=== PATIENT | male | born 1985 | race Caucasian/White ===

== ENCOUNTER 2016-07-31 18:29 | Emergency (ER) | payer MEDICAID, OTHER ==
[2016-07-31 18:43] VITALS: BP 147/80
[2016-07-31] MEDS ORDERED: ORPHENADRINE CITRATE 30 MG/ML VIAL IM ONE (18:53)
[2016-07-31] MEDS ORDERED: KETOROLAC TROMETHAMINE 30 MG/ML VIAL IM ONE (18:53)
[2016-07-31] MEDS ORDERED: oxyCODONE HCL/ACETAMINOPHEN 1 TAB TABLET PO ONE (18:53)
[2016-07-31] MEDS ORDERED: KETOROLAC TROMETHAMINE 30 MG/ML VIAL ONE (19:01)
[2016-07-31] MEDS ORDERED: ORPHENADRINE CITRATE 30 MG/ML VIAL ONE (19:01)
[2016-07-31] MEDS ORDERED: oxyCODONE HCL/ACETAMINOPHEN 1 TAB TABLET ONE (19:01)
--- NOTE | 2016-07-31 19:05 | ERNOTE ---
Upper Extremity HPI - Narrative Date of Service: 07/31/16 - General Extremities Pain Location: shoulder: left - Pain Time Seen by Provider: 07/31/16 18:50 Source: patient Exam Limitations: no limitations - Immun/Allergies/Home Medications Immunizations: IMMUNIZATION HX Immunizations Up to Date Yes History of Influenza Vaccine No Home Medications: HOME MEDICATIONS Naproxen [Naprosyn] 500 mg PO BID PRN #20 tab 07/31/16 [Last Taken Unknown] Orphenadrine Citrate [Norflex] 100 mg PO Q12H #14 tablet.sa 07/31/16 [Last Taken Unknown] traMADol HCL [Ultram] 50 mg PO QID PRN #21 tab 07/31/16 [Last Taken Unknown] - History of Present Illness Narrative: Patient comes due to L shoulder pain. Patient stated that he move yesterday, but had no direct trauma to the shoulder. Patient with no fever. The pain reproduced with any movement including breathing. Occurred: yesterday Location of Incident: home Severity: moderate Method of Injury: Reports: other - recent over use. Denies: fell, twisted, direct blow, fainted, motor vehicle accident, assault, burn, incised, sports injury, no apparent injury Reason for Fall: Reports: other - none Loss of Consciousness: Reports: no loss of consciousness Modifying Factors - (Improves): Reports: other - nothing Modifying Factors - (Worsens): Reports: movement Associated Symptoms: Reports: weakness, other - pain on ROM Other Injuries: Reports: none Prior Treament: Denies: recently seen Additional Comments: Patient just move into the area. Review of Systems - Review of Systems Constitutional: Present: no symptoms reported EYE: Present: no symptoms reported ENT: Present: no symptoms reported Respiratory: Present: no symptoms reported Cardiology: Present: no symptoms reported Gastrointestinal/Abdominal: Present: no symptoms reported Genitourinary: Present: no symptoms reported Musculoskeletal: Present: muscle pain - L shoulder area at the Bicep Tendo region. Absent: joint pain, joint swelling Skin: Present: no symptoms reported Neurological: Present: no symptoms reported Endocrine: Present: no symptoms reported Hematologic/Lymphatic: Present: no symptoms reported Psych: Present: no symptoms reported All Other Systems: All systems neg except as marked - Patient's Past Medical History Patient History - Medical: No pertinent hx Patient History - Cardiac/Respiratory: No pertinent hx Patient History - Cancer: No Hx of Cancer Patient History - Surgical Procedures: No surgical history Patient History - Other: None - Social History Living Situations: spouse Abuse History: No History of abuse Psych History: Hx of Depression Smoking Status: Current every day smoker Have you smoked in the past 12 months: Yes Do you dip or chew tobacco: No Alcohol Use: none Drug Use: none - Immunizations Immunizations Up to Date: Yes History of Influenza Vaccine: No Physical Exam - Physical Exam General Appearance: Present: wd/wn, alert, no apparent distress Eye Exam: Normal inspection: bilateral Ears, Nose, Throat: Present: normal ENT inspection Neck: Present: normal inspection, nontender Respiratory: Present: no respiratory distress, normal breath sounds, no accessory muscle use, chest nontender, lungs clear Cardiovascular/Chest: Present: regular rate, rhythm, no murmur, normal peripheral pulses Gastrointestinal/Abdominal: Present: normal bowel sounds. Absent: distended, guarding, rebound, mass Back Exam: Present: normal inspection, normal range of motion, no CVA tenderness , no vertebral tenderness Extremity Exam: Present: decreased range of motion - due to pain, other - Good Pulse, There is pain on the Bicep Tendon area. ROM is preserved but limited due to pain. Patient has good sensation Neurological Exam: Present: alert, oriented, normal mood/affect, no motor/ sensory deficits Skin Exam: Present: normal color, warm/dry Lymphatic Exam: Present: no adenopathy ED Progress - Vital Signs Patient's Vital Signs:: I have reviewed the patient's vital signs. Vital Signs: Vital Signs 07/31/16 18:30 Temperature 37.1 C Pulse Rate 105 H Respiratory 18 Rate Blood Pressure 147/80 O2 Sat by Pulse 99 Oximetry - Progress/Reassessment Chief Complaint: Shoulder Injury/Pain Progress:: Improved - Transfer of Care Expected Disposition: Discharge Departure Clinical Impression: Tendonitis Shoulder pain Qualifiers: Laterality: left Chronicity: acute Qualified Code(s): M25.512 - Pain in left shoulder - Departure Disposition: Home self-care Condition: Stable Instructions: Shoulder Sprain, Bicipital Tendinitis Prescriptions: Naproxen [Naprosyn] 500 mg PO BID PRN #20 tab PRN Reason: Pain Orphenadrine Citrate [Norflex] 100 mg PO Q12H #14 tablet.sa traMADol HCL [Ultram] 50 mg PO QID PRN #21 tab PRN Reason: Pain
== END 2016-07-31 19:10 | disposition home or self-care (01) ==
LOC: ER 18:29
DX: M75.22 Bicipital tendinitis, left shoulder (principal); M25.512 Pain in left shoulder; Z72.0 Tobacco use